=== PATIENT | female | born 1990 | race Caucasian/White ===

== ENCOUNTER 2017-08-30 06:26 | Inpatient (IN) ==
[2017-08-30] MEDS ORDERED: BUTORPHANOL 2 MG/ML VIAL IV PRN (07:35)
[2017-08-30] MEDS ORDERED: ONDANSETRON 4 MG/2 ML VIAL IV PRN (07:35)
[2017-08-30] MEDS ORDERED: MEPERIDINE 50 MG/1 ML VIAL IV PRN (07:35)
[2017-08-30] MEDS ORDERED: LACTATED RINGERS 250 ML IV ONE (07:35)
[2017-08-30] MEDS ORDERED: LACTATED RINGERS 1,000 ML IV SCH (08:00)
[2017-08-30] MEDS ORDERED: OXYTOCIN/LR 20 UNIT/1,000 ML BAG IV SCH (08:00)
[2017-08-30 08:47] LABS: Basophils # 0.1 10*3/uL (0.0-0.2); Basophils % 0.5 % (0.0-0.8); Eosinophils # 0.1 10*3/uL (0.0-0.87); Eosinophils % 0.6 % (0.00-10.9); Hematocrit 35.4 VOL% (35.7-47.0); Hemoglobin 12.4 GM/DL (12.0-16.0); Immature Granulocytes % 1.4 %; Immature Granulocytes Absolute 0.18 #; Lymphocytes # 1.8 10*3/uL (1.4-4.0); Lymphocytes % 14.2 % (21.3-54.2); Mean Corpuscular Hemoglobin 29 PG (27-34); Mean Corpuscular Volume 83.3 FL (87-102); Mean Platelet Volume 10.3 FL (9.6-12.0); Monocytes # 0.9 10*3/uL (0.11-0.8); Monocytes % 6.8 % (1.7-12.7); Neutrophils # 9.7 10*3/uL (1.4-7.4); Neutrophils % 76.5 % (38.7-73.9); Platelet Count 313 T/CUMM (130-400); Red Blood Count 4.25 MC/CUMM (3.8-5.5); White Blood Count 12.7 T/CUMM (4-12)
[2017-08-30 09:19] LABS: Albumin 2.9 G/DL (3.4-5.0); Bilirubin,Total 0.4 MG/DL (0.2-1.0); Calcium 8.8 MG/DL (8.5-10.1); Osmolality,Calculated 272.7 MOS/KG (273-304); Potassium 4.3 MMOL/L (3.5-5.1); Total Protein 6.1 G/DL (6.4-8.3)
[2017-08-30] MEDS ORDERED: LACTATED RINGERS 1,000 ML IV ONE (09:49)
[2017-08-30] MEDS ORDERED: hydrOXYzine HCL 25 MG/1 ML VIAL IM PRN (09:49)
[2017-08-30] MEDS ORDERED: CITRIC ACID/SODIUM CITRATE 30 ML UDCUP PO ONE (09:49)
[2017-08-30] MEDS ORDERED: diphenhydrAMINE 50 MG/1 ML VIAL IV PRN ×2 (09:49)
[2017-08-30] MEDS ORDERED: PROMETHAZINE 25 MG/1 ML VIAL IM ONE (09:49)
[2017-08-30] MEDS ORDERED: ePHEDrine 50 MG/ML AMP IV PRN (09:49)
[2017-08-30] MEDS ORDERED: ONDANSETRON 4 MG/2 ML VIAL IV ONE (09:49)
[2017-08-30] MEDS ORDERED: FAMOTIDINE 20 MG/2 ML VIAL IV ONE (09:49)
[2017-08-30] MEDS ORDERED: fentaNYL 2 MCG/ROPIV 0.2% EPID 150 ML EPIDURAL SCH (10:00)
[2017-08-30 12:07] LABS: Apearance,Urine CLEAR (Clear); Bacteria,Urine Occasional /HPF (Few); Bilirubin,Urine Negative (Negative); Blood, Urine Small mg/dL (Negative); Glucose,Urine (UA) Negative (Negative); Ketones,Urine Negative (Negative); Mucus,Urine Occasional /LPF (Occasional); Nitrite,Urine Negative (Negative); Protein,Urine Negative; Squamous Epithelial Cell,Urine Occasional /HPF (0-10); Urine Color Yellow (Yellow); Urine Specific Gravity 1.009 (1.001-1.035); Urine Urobilinogen < 2.0 EU/DL (0.2-1.0)
[2017-08-30] MEDS ORDERED: LIDOCAINE 1% 50 ML VIAL ONE (15:37)
[2017-08-30] MEDS ORDERED: miSOPROStol 200 MCG TABLET ONE (15:37)
[2017-08-30 17:57] LABS: Cord Venous Blood HCO3 19.3 MMOL/L; Cord Venous Blood PCO2 31.8 MMHG; Cord Venous Blood PO2 28.2
[2017-08-30] MEDS ORDERED: ACETAMINOPHEN/CODEINE 300-30 MG TABLET PO PRN (20:30)
[2017-08-30] MEDS ORDERED: oxyCODONE/ACETAMINOPHEN 5-325 MG TABLET PO PRN ×2 (20:30)
[2017-08-30] MEDS ORDERED: ACETAMINOPHEN 325 MG TABLET PO PRN (20:30)
[2017-08-30] MEDS ORDERED: WITCH HAZEL PADS 100/JAR TOP PRN (20:30)
[2017-08-30] MEDS ORDERED: RHO(D) IMMUNE GLOBULIN 300 MCG SYRINGE IM ONE (20:30)
[2017-08-30] MEDS ORDERED: BENZOCAINE 20%/MENTHOL 0.5% SPRAY 56 GM CAN TOP PRN (20:30)
[2017-08-30] MEDS ORDERED: HYDROCORTISONE 2.5% RECTAL CREAM 30 GM TUBE TOP PRN (20:30)
[2017-08-30] MEDS ORDERED: MEASLES/MUMPS/RUBELLA VACCINE 0.5 ML VIAL SUBCUT ONE (20:30)
[2017-08-30] MEDS ORDERED: BISACODYL 10 MG SUPP RECTAL PRN (20:30)
[2017-08-30] MEDS ORDERED: DIPH/TET/ACEL PERT BOOSTER VACCINE 0.5 ML VIAL IM ONE (20:30)
[2017-08-30] MEDS ORDERED: LANOLIN 50% CREAM 0.3 OZ TUBE TOP PRN (20:30)
[2017-08-30] MEDS ORDERED: OXYTOCIN/LR 20 UNIT/1,000 ML BAG IV ONE ×2 (20:35→20:50)
[2017-08-30] MEDS: IBUPROFEN 800 MG TABLET PO PRN (20:46)
[2017-08-31] MEDS: IBUPROFEN 800 MG TABLET PO PRN ×4 (04:11→21:40)
[2017-08-31 06:58] LABS: Basophils # 0.1 10*3/uL (0.0-0.2); Basophils % 0.3 % (0.0-0.8); Eosinophils # 0.1 10*3/uL (0.0-0.87); Eosinophils % 0.5 % (0.00-10.9); Hematocrit 28.6 VOL% (35.7-47.0); Hemoglobin 9.5 GM/DL (12.0-16.0); Immature Granulocytes Absolute 0.22 #; Lymphocytes # 2.3 10*3/uL (1.4-4.0); Lymphocytes % 10.3 % (21.3-54.2); Mean Corpuscular HGB Conc 33.2 GM/DL (32-36); Mean Corpuscular Hemoglobin 29 PG (27-34); Mean Corpuscular Volume 85.9 FL (87-102); Mean Platelet Volume 10.1 FL (9.6-12.0); Monocytes # 2.1 10*3/uL (0.11-0.8); Monocytes % 9.4 % (1.7-12.7); Neutrophils # 17.2 10*3/uL (1.4-7.4); Neutrophils % 78.5 % (38.7-73.9); Platelet Count 266 T/CUMM (130-400); Red Blood Count 3.33 MC/CUMM (3.8-5.5); Red Cell Distribution Width 13.9 % (9.3-17.3); White Blood Count 21.9 T/CUMM (4-12)
[2017-08-31 07:18] LABS: Eosinophils 2 % (0-10); Hypochromasia 1+; Lymphocytes 9 % (20-55); Platelet Estimate Adequate; Segmented Neutrophils 83 % (50-85); Total Cells Counted 100
[2017-08-31 07:19] LABS: Giant Platelets Few; Ovalocytes Slight
[2017-08-31] MEDS: DOCUSATE SODIUM 100 MG CAPSULE PO SCH ×2 (09:32→21:40)
[2017-09-01] MEDS: IBUPROFEN 800 MG TABLET PO PRN (04:17)
[2017-09-01 07:34] VITALS: BP 102/60
[2017-09-01] MEDS: DOCUSATE SODIUM 100 MG CAPSULE PO SCH (10:25)
== END 2017-09-01 11:10 | disposition home or self-care (01) | DRG 775 ==
LOC: N.LDOUT 06:26 → N.LD 06:34 → N.OB 22:10
PROVIDERS: ADMIT Obstetrics & Gynecology; ATTEND Obstetrics & Gynecology

== ENCOUNTER 2020-10-23 10:29 | Inpatient (IN) ==
[2020-10-23] MEDS ORDERED: BUTORPHANOL 2 MG/ML VIAL IV PRN (10:46)
[2020-10-23] MEDS ORDERED: ONDANSETRON 4 MG/2 ML VIAL IV PRN ×2 (10:46→18:26)
[2020-10-23] MEDS ORDERED: MEPERIDINE 50 MG/1 ML VIAL IV PRN (10:46)
[2020-10-23] MEDS ORDERED: OXYTOCIN/LR 20 UNIT/1,000 ML BAG IV SCH (11:00)
[2020-10-23] MEDS ORDERED: NALOXONE 0.4 MG/ML VIAL IV PRN (11:07)
[2020-10-23] MEDS ORDERED: PROMETHAZINE 25 MG/1 ML VIAL IM ONE (11:07)
[2020-10-23] MEDS ORDERED: LACTATED RINGERS 1,000 ML IV ONE (11:07)
[2020-10-23] MEDS ORDERED: FAMOTIDINE 20 MG/2 ML VIAL IV ONE (11:07)
[2020-10-23] MEDS ORDERED: CITRIC ACID/SODIUM CITRATE 30 ML UDCUP PO ONE (11:07)
[2020-10-23] MEDS ORDERED: diphenhydrAMINE 50 MG/1 ML VIAL IV PRN ×2 (11:07)
[2020-10-23] MEDS ORDERED: hydrOXYzine HCL 25 MG/1 ML VIAL IM PRN (11:07)
[2020-10-23] MEDS ORDERED: ONDANSETRON 4 MG/2 ML VIAL IV ONE (11:07)
[2020-10-23 11:08] LABS: Basophils % 0.3 % (0.0-0.8); Eosinophils % 0.4 % (0.00-10.9); Hematocrit 30.6 VOL% (35.7-47.0); Hemoglobin 9.9 GM/DL (12.0-16.0); Immature Granulocytes % 0.9 %; Immature Granulocytes Absolute 0.09 #; Lymphocytes # 1.6 10*3/uL (1.4-4.0); Lymphocytes % 15.2 % (21.3-54.2); Mean Corpuscular HGB Conc 32.4 GM/DL (32-36); Mean Corpuscular Volume 72.7 FL (87-102); Mean Platelet Volume 10.2 FL (9.6-12.0); Monocytes % 5.8 % (1.7-12.7); Neutrophils % 77.4 % (38.7-73.9); Platelet Count 318 T/CUMM (130-400); Red Blood Count 4.21 MC/CUMM (3.8-5.5); Red Cell Distribution Width 14.4 % (9.3-17.3); White Blood Count 10.4 T/CUMM (4-12)
[2020-10-23 11:26] LABS: Alanine Aminotransferase 17 U/L (13-56); Albumin 2.7 G/DL (3.4-5.0); Alkaline Phosphatase 423 U/L (45-117); Aspartate Amino Transferase 29 U/L (0-37); Bilirubin,Total < 0.39 MG/DL (0.2-1.0); Blood Urea Nitrogen 6 MG/DL (7-18); Calcium 8.5 MG/DL (8.5-10.1); Carbon Dioxide 21 MMOL/L (21-32); Estimated Glom Filtration Rate 86 ML/MIN; Glucose 90 MG/DL (74-106); Potassium 3.8 MMOL/L (3.5-5.1); Sodium 136 MMOL/L (136-145); Total Protein 6.5 G/DL (6.4-8.2)
[2020-10-23] MEDS: LACTATED RINGERS 1,000 ML IV SCH ×2 (11:27→14:50)
[2020-10-23] MEDS ORDERED: fentaNYL 2 MCG/ROPIV 0.2% EPID 100 ML EPIDURAL SCH (11:30)
[2020-10-23] MEDS: ePHEDrine 50 MG/ML VIAL IV PRN ×2 (12:38→12:41)
[2020-10-23 15:52] LABS: Bilirubin,Urine Negative (Negative); Blood, Urine Negative (Negative); Glucose,Urine (UA) Negative (Negative); Ketones,Urine 5 mg/dL (Negative); Mucus,Urine Occasional /LPF (Occasional); Nitrite,Urine Negative (Negative); Protein,Urine 30 MG/DL; RBC,Urine 1 /HPF (0-4); Urine Appearance CLEAR (Clear); Urine Color Yellow (Yellow); Urine Specific Gravity 1.012 (1.001-1.035); Urine Urobilinogen < 2.0 EU/DL (0.2-1.0)
[2020-10-23] MEDS ORDERED: OXYTOCIN/LR 0 UNIT/0 ML BAG IV ONE (17:53)
[2020-10-23] MEDS ORDERED: METHYLERGONOVINE 0.2 MG/1 ML AMP ONE (17:53)
[2020-10-23] MEDS ORDERED: CARBOPROST TROMETHAMINE 250 MCG/ML AMP IM ONE (17:53)
[2020-10-23] MEDS ORDERED: TRANEXAMIC ACID 1,000 MG/10 ML VIAL ONE (17:53)
[2020-10-23] MEDS ORDERED: miSOPROStoL 200 MCG TABLET ONE (17:53)
[2020-10-23] MEDS ORDERED: SODIUM CHLORIDE 0.9% 0 ML IV ONE (17:54)
[2020-10-23] MEDS ORDERED: METHYLERGONOVINE 0.2 MG/1 ML AMP IM ONE (18:22)
[2020-10-23] MEDS ORDERED: oxyCODONE/ACETAMINOPHEN 5-325 MG TABLET PO PRN ×2 (18:26)
[2020-10-23] MEDS ORDERED: BENZOCAINE 20%/MENTHOL 0.5% SPRAY 56 GM CAN TOP PRN (18:26)
[2020-10-23] MEDS ORDERED: DIPH/TET/ACEL PERT BOOSTER VACCINE 0.5 ML VIAL IM ONE (18:26)
[2020-10-23] MEDS ORDERED: RHO(D) IMMUNE GLOBULIN 300 MCG SYRINGE IM ONE (18:26)
[2020-10-23] MEDS ORDERED: WITCH HAZEL PADS 100/JAR TOP PRN (18:26)
[2020-10-23] MEDS ORDERED: HYDROCORTISONE 2.5% RECTAL CREAM 30 GM TUBE TOP PRN (18:26)
[2020-10-23] MEDS ORDERED: ACETAMINOPHEN 325 MG TABLET PO PRN (18:26)
[2020-10-23] MEDS ORDERED: MEASLES/MUMPS/RUBELLA VACCINE 0.5 ML VIAL SUBCUT ONE (18:26)
[2020-10-23] MEDS ORDERED: LANOLIN 50% CREAM 0.3 OZ TUBE TOP PRN (18:26)
[2020-10-23] MEDS ORDERED: BISACODYL 10 MG SUPP RECTAL PRN (18:26)
[2020-10-23] MEDS ORDERED: OXYTOCIN/LR 20 UNIT/1,000 ML BAG IV ONE (18:26)
[2020-10-23 18:29] LABS: Cord Arterial Blood HCO3 18.2 MMOL/L
[2020-10-23 18:32] LABS: Cord Venous Blood HCO3 20.1 MMOL/L; Cord Venous Blood PCO2 39.3 MMHG; Cord Venous Blood PO2 23.5
[2020-10-23] MEDS: IBUPROFEN 800 MG TABLET PO PRN (19:05)
[2020-10-23 21:29] LABS: Hematocrit 29.7 VOL% (35.7-47.0); Hemoglobin 9.2 GM/DL (12.0-16.0)
[2020-10-24] MEDS: IBUPROFEN 800 MG TABLET PO PRN ×3 (03:57→15:56)
[2020-10-24 05:34] LABS: Basophils # 0.1 10*3/uL (0.0-0.2); Basophils % 0.4 % (0.0-0.8); Eosinophils # 0.1 10*3/uL (0.0-0.87); Eosinophils % 0.4 % (0.00-10.9); Hematocrit 25.1 VOL% (35.7-47.0); Hemoglobin 8.2 GM/DL (12.0-16.0); Immature Granulocytes % 0.8 %; Immature Granulocytes Absolute 0.13 #; Mean Corpuscular HGB Conc 32.7 GM/DL (32-36); Mean Corpuscular Volume 73.6 FL (87-102); Mean Platelet Volume 9.7 FL (9.6-12.0); Monocytes % 8.3 % (1.7-12.7); Neutrophils % 77.1 % (38.7-73.9); Platelet Count 267 T/CUMM (130-400); Red Blood Count 3.41 MC/CUMM (3.8-5.5); Red Cell Distribution Width 14.3 % (9.3-17.3); White Blood Count 15.6 T/CUMM (4-12)
[2020-10-24] MEDS: DOCUSATE SODIUM 100 MG CAPSULE PO SCH ×2 (09:39→21:12)
[2020-10-24] MEDS: FERROUS SULFATE 325 MG TABLET PO SCH ×2 (09:39→21:12)
[2020-10-25 07:20] VITALS: BP 98/54
[2020-10-25] MEDS: DOCUSATE SODIUM 100 MG CAPSULE PO SCH (07:52)
[2020-10-25] MEDS: FERROUS SULFATE 325 MG TABLET PO SCH (07:52)
== END 2020-10-25 12:55 | disposition home or self-care (01) | DRG 807 ==
LOC: N.LD 10:29 → N.OB 21:20
PROVIDERS: ADMIT Obstetrics & Gynecology; ATTEND Obstetrics & Gynecology